=== PATIENT | female | born 2005 | race African-American/Black ===

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

== ENCOUNTER 2024-06-26 15:14 | Outpatient (CLI) | payer MEDICAID | END 2024-06-26 15:15 | disposition home or self-care (01) | LOC: CSHULT 15:14 | PROVIDERS: ATTEND Nurse Practitioner Gerontology | DX: Z34.81 Encounter for supervision of other normal pregnancy, first trimester (principal); Z3A.08 8 weeks gestation of pregnancy | CPT/HCPCS: 76817 ==

== ENCOUNTER 2024-09-09 10:31 | Outpatient (CLI) | payer OTHER | END 2024-09-09 10:32 | disposition home or self-care (01) | LOC: CSHULT 10:31 | PROVIDERS: ATTEND Family Medicine | DX: Z34.82 Encounter for supervision of other normal pregnancy, second trimester (principal); Z3A.19 19 weeks gestation of pregnancy | CPT/HCPCS: 76805 ==

== ENCOUNTER 2025-01-15 19:16 | Emergency (ER) | payer OTHER ==
[2025-01-15] MEDS ORDERED: Bacitracin 1 PK ONE (19:47)
== END 2025-01-15 19:50 | disposition home or self-care (01) ==
LOC: CSHERS 19:16
DX: T81.30XA Disruption of wound, unspecified, initial encounter (principal)
CPT/HCPCS: 99283